=== PATIENT | female | born 1990 | race Caucasian/White ===

== ENCOUNTER 2022-12-14 13:23 | Inpatient (IN) | payer OTHER ==
[2022-12-14] MEDS ORDERED: OXYTOCIN 20 UNITS in 0.9% NS 20 UNIT/1,000 ML INFUS.BAG IV ONE ×2 (13:30→14:28)
[2022-12-14] MEDS: OXYTOCIN 20 UNITS in 0.9% NS 20 UNIT/1,000 ML INFUS.BAG IV SCH ×2 (13:38→14:50)
[2022-12-14] MEDS ORDERED: LIDOCAINE HCL 1% PRESERVATIVE FREE - 30ML VIAL ONE (13:41)
[2022-12-14] MEDS ORDERED: CEFAZOLIN SODIUM 2 GM in DEXTROSE 5%-WATER 100 ML IVPB ONE (14:30)
[2022-12-14] MEDS ORDERED: ceFAZolin SODIUM 1 GM VIAL ONE ×2 (14:38)
[2022-12-14] MEDS ORDERED: SODIUM CHLORIDE 100 ML IVPB ONE (14:38)
[2022-12-14] MEDS: LABETALOL HCL 200 MG TABLET (FP) PO SCH ×2 (14:50→23:58)
[2022-12-14] MEDS ORDERED: LABETALOL HCL 100 MG TABLET (FP) ONE (14:59)
[2022-12-14 15:10] VITALS: BMI 44.0
[2022-12-14] MEDS ORDERED: BISACODYL 10 MG SUPP.RECT RC PRN (15:52)
[2022-12-14] MEDS ORDERED: ACETAMINOPHEN 325 MG TABLET (FP) PO PRN (15:52)
[2022-12-14] MEDS ORDERED: BENZOCAINE 20% 57 GM BOTTLE TP PRN (15:52)
[2022-12-14] MEDS ORDERED: BENZOCAINE 28 GM HEMORRHOIDAL OINTMENT TP PRN (15:52)
[2022-12-14] MEDS ORDERED: WITCH HAZEL 50% (TUCKS) 40 PAD/JAR PAD TP PRN (15:52)
[2022-12-14] MEDS ORDERED: METHYLERGONOVINE MALEATE 0.2 MG/1 ML AMP IM PRN (15:52)
[2022-12-14] MEDS: IBUPROFEN 600 MG TABLET (FP) PO PRN (15:59)
[2022-12-14] MEDS ORDERED: OXYTOCIN 20 UNITS in 0.9% NS 20 UNIT/1,000 ML INFUS.BAG IV SCH (16:00)
[2022-12-14] MEDS ORDERED: IBUPROFEN 600 MG TABLET (FP) PO ONE (16:01)
[2022-12-14 16:22] LABS: BASO % 0.1 % (0-2.0); HEMATOCRIT 30.6 % (32.4-45.2); HEMOGLOBIN 10.2 GM/dL (10.7-15.3); LYMPH % 4.4 % (8-40); MCHC 33.3 g/dl (32.0-36.0); MEAN CELL VOLUME 90.2 fl (80-96); MEAN PLT VOLUME 9.3 fl (7.5-11.1); MONO % 3.2 % (3.8-10.2); NEUT % 92.3 % (42.8-82.8); PLATELET COUNT 268 10^3/uL (134-434); RBC 3.39 M/mm3 (3.60-5.2); RDW 14.8 % (11.6-15.6)
[2022-12-14 16:26] LABS: INR 1.02 (0.83-1.09); PROTHROMBIN TIME (PATIENT) 11.8 SEC (9.7-13.0)
[2022-12-14 16:29] LABS: ACTIVATED PTT 23.1 SECONDS (25.2-36.5)
[2022-12-14 16:45] LABS: POTASSIUM 4.2 mmol/L (3.5-5.1)
[2022-12-14 16:46] LABS: CALCIUM 9.1 mg/dL (8.5-10.1)
[2022-12-14 16:47] LABS: BLOOD UREA NITROGEN 12.2 mg/dL (7-18)
[2022-12-14 16:50] LABS: CREATININE 0.7 mg/dL (0.55-1.3)
[2022-12-14 17:12] LABS: SYPHILIS W/ RPR CONF NON-REACTIVE (NONREACTIVE)
[2022-12-14 17:17] LABS: ANISOCYTOSIS 1+; MACROCYTOSIS 0
[2022-12-14 17:40] LABS: HIV INTERPRETATION NEGATIVE (NEGATIVE)
[2022-12-15] MEDS: oxyCODONE HCL 5 MG TABLET PO PRN ×2 (04:55→23:20)
[2022-12-15 08:29] LABS: BASO % 0.4 % (0-2.0); EOS % 0.6 % (0-4.5); HEMATOCRIT 26.4 % (32.4-45.2); HEMOGLOBIN 8.6 GM/dL (10.7-15.3); LYMPH % 14.6 % (8-40); MCHC 32.7 g/dl (32.0-36.0); MEAN CELL VOLUME 91.6 fl (80-96); MEAN PLT VOLUME 9.7 fl (7.5-11.1); MONO % 4.9 % (3.8-10.2); NEUT % 79.5 % (42.8-82.8); PLATELET COUNT 228 10^3/uL (134-434); RBC 2.88 M/mm3 (3.60-5.2); RDW 14.7 % (11.6-15.6); WHITE BLOOD COUNT 15.7 K/mm3 (4.0-10.0)
[2022-12-15] MEDS: IBUPROFEN 600 MG TABLET (FP) PO PRN ×2 (08:45→15:32)
[2022-12-15] MEDS: LABETALOL HCL 200 MG TABLET (FP) PO SCH ×2 (10:00→22:08)
[2022-12-15] MEDS ORDERED: SENNOSIDES/DOCUSATE COMBO (SENNA PLUS) TABLET (UD) PO PRN (22:00)
[2022-12-16] MEDS: LABETALOL HCL 200 MG TABLET (FP) PO SCH (10:00)
[2022-12-16 10:34] VITALS: BP 121/80; PULSE 114; RESP 16; TEMP 97.8
== END 2022-12-16 11:30 | disposition home or self-care (01) | DRG 560 ==
LOC: JLDR 13:23 → J3W 16:09
PROVIDERS: ADMIT Obstetrics & Gynecology; ATTEND Obstetrics & Gynecology
PROC: 10E0XZZ Delivery of Products of Conception, External Approach (ICD-10-PCS; principal; 2022-12-14)
PROC: 0W8NXZZ Division of Female Perineum, External Approach (ICD-10-PCS; 2022-12-14)
PROC: 0HQ9XZZ Repair Perineum Skin, External Approach (ICD-10-PCS; 2022-12-14)
DX: Z39.0 Encounter for care and examination of mother immediately after delivery (principal); O70.0 First degree perineal laceration during delivery; O10.92 Unspecified pre-existing hypertension complicating childbirth; Z3A.38 38 weeks gestation of pregnancy; Z37.0 Single live birth
CPT/HCPCS: 36415; 59025; 80048; 85025; 85610; 85730; 86780; 86850; 86870; 86900; 86901; 86902; 87389; 88307-TC